=== PATIENT | male | born 1980 | race Caucasian/White ===

== ENCOUNTER 2021-02-19 14:14 | Emergency (ER) | payer MEDICARE, MEDICAID ==
[~2021-02-19] VITALS: Ht 188 cm; Wt 56.7 kg
[2021-02-19] MEDS ORDERED: KEPPRA XR500 MG PO (14:21)
[2021-02-19] MEDS ORDERED: NEURONTIN 300M300 M2 PO (14:21)
[2021-02-19] MEDS ORDERED: COLACE100 MG PO (14:21)
[2021-02-19] MEDS ORDERED: [UNRECOGNIZED DRUG - REMARK] (14:21)
[2021-02-19 14:35] LABS: ABSOLUTE BASOPHILS 0.1 thou/uL (0.0-0.2); ABSOLUTE EOSINOPHILS 0.1 thou/uL (0.0-0.7); ABSOLUTE LYMPHOCYTES 1.4 thou/uL (0.8-5.3); ABSOLUTE MONOCYTES 0.3 thou/uL (0.0-1.2); ABSOLUTE NEUTROPHILS 4.2 thou/uL (1.6-8.1); EOSINOPHILS 0.8 %; HEMATOCRIT 37.2 % (42.0-52.0); HEMOGLOBIN 13.2 gm/dL (14.0-18.0); LYMPHOCYTES 23.5 %; MCH 36.4 pg (26.0-34.0); MCHC 35.3 g/dL (28.0-37.0); MCV 103.1 fL (80.0-100.0); MONOCYTES 5.2 %; MPV 7.9 fl. (7.2-11.1); NUCLEATED RBCS 0 /100WBC; PLATELET COUNT* 197 thou/uL (150-400); POLYS 69.5 %; RBC 3.61 mil/uL (4.50-6.00); RDW-CV 13.2 % (10.5-14.5); WBC 6.1 thou/uL (4.0-11.0)
[2021-02-19 14:44] LABS: ANION GAP 9 mmol/L (7-16); BUN 38 mg/dL (7-18); CHLORIDE 98 mmol/L (98-107); CO2 30 mmol/L (21-32); CREATININE 4.9 mg/dL (0.6-1.3); GLUCOSE 124 mg/dL (70-99); POTASSIUM 3.8 mmol/L (3.5-5.1); SODIUM 137 mmol/L (136-145)
[2021-02-19 14:49] LABS: ALBUMIN 3.8 g/dL (3.4-5.0); ALKALINE PHOSPHATASE 20 U/L (46-116); SGOT < 5 U/L (15-37); SGPT 16 U/L (30-65); TOTAL BILIRUBIN 0.6 mg/dL (<0.1-1.0); TOTAL PROTEIN 7.4 g/dL (6.4-8.2)
[2021-02-19 15:48] VITALS: BP 125/95
--- NOTE | 2021-02-19 16:58 | EKG ---
[place] [address] ELECTROCARDIOGRAM REPORT Name: ABDIEL HERNANDEZ Room: [facility]#: [id number] Admission: 02/19/21 Attend Phys: Discharge: 02/19/21 Date of : 80 Date of Service: 02/19/21 1451 Report #: [id number] THIS REPORT FOR: //name// 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
== END 2021-02-19 15:48 | disposition home or self-care (01) ==
LOC: M.ERS 14:14
PROVIDERS: Emergency Medicine
DX: R06.02 Shortness of breath (principal); N18.6 End stage renal disease; Z99.2 Dependence on renal dialysis; Z79.899 Other long term (current) drug therapy; Z86.73 Personal history of transient ischemic attack (TIA), and cerebral infarction without residual deficits

== ENCOUNTER 2021-03-06 15:25 | Observation (INO) | payer MEDICARE, MEDICAID ==
[~2021-03-06] VITALS: Ht 188 cm; Wt 59.0 kg
[~2021-03-06 15:25] MED LIST: COLACE100 MG PO; KEPPRA XR500 MG PO; NEURONTIN 300M300 M2 PO; [UNRECOGNIZED DRUG - REMARK]
[2021-03-06 15:32] VITALS: BP 136/90
[2021-03-06 15:53] LABS: ABSOLUTE BASOPHILS 0.1 thou/uL (0.0-0.2); ABSOLUTE LYMPHOCYTES 1.1 thou/uL (0.8-5.3); ABSOLUTE MONOCYTES 0.3 thou/uL (0.0-1.2); ABSOLUTE NEUTROPHILS 7.3 thou/uL (1.6-8.1); BASOPHILS 0.6 %; EOSINOPHILS 0.2 %; HEMATOCRIT 38.2 % (42.0-52.0); HEMOGLOBIN 13.5 gm/dL (14.0-18.0); LYMPHOCYTES 12.6 %; MCH 35.6 pg (26.0-34.0); MCHC 35.3 g/dL (28.0-37.0); MCV 100.9 fL (80.0-100.0); MONOCYTES 3.3 %; MPV 7.7 fl. (7.2-11.1); NUCLEATED RBCS 0 /100WBC; PLATELET COUNT* 190 thou/uL (150-400); POLYS 83.3 %; RBC 3.78 mil/uL (4.50-6.00); WBC 8.8 thou/uL (4.0-11.0)
[2021-03-06 16:00] LABS: ANION GAP 8 mmol/L (7-16); BUN 41 mg/dL (7-18); CALCIUM 9.1 mg/dL (8.5-10.1); CHLORIDE 100 mmol/L (98-107); CO2 31 mmol/L (21-32); CREATININE 6.2 mg/dL (0.6-1.3); GLUCOSE 90 mg/dL (70-99); POTASSIUM 3.9 mmol/L (3.5-5.1); SODIUM 139 mmol/L (136-145)
[2021-03-06 16:05] LABS: ALKALINE PHOSPHATASE 21 U/L (46-116); SGOT < 5 U/L (15-37); SGPT 7 U/L (30-65); TOTAL BILIRUBIN 0.7 mg/dL (<0.1-1.0); TOTAL PROTEIN 7.4 g/dL (6.4-8.2)
--- NOTE | 2021-03-06 21:00 | NUR ---
PT HAD MODERATE SIZE STOOL , SOFT, BROWN AND UNFORMED AFTER THE FLEETS ENEMA.
[2021-03-06 21:40] VITALS: BP 137/100
[2021-03-06 22:15] VITALS: BP 154/107
--- NOTE | 2021-03-07 05:16 | NUR ---
PT COMPLETELY FLACCID ON LEFT SIDE, BOTH EXTREMETIES. HE HAD A LARGE BM THIS MORNING AROUND 5 AM. HE IS ALERT AND ORIENTED, ROOM AIR. HE CAN GET UP AND WALK SOME WITH ASSISTANCE. HE REPORTS SOME ABDOMINAL SPASMS. HE WAS ABLE TO SLEEP WELL THIS SHIFT. HE REPORTS HE IS FEELING MUCH BETTER, AND HAD A SUBSTANTIAL BOWEL MOVEMENT. HE RECEIVED FLUIDS ALL EVENING AND CLEAR LIQUIDS.
[2021-03-07 08:21] VITALS: BP 142/95
--- NOTE | 2021-03-07 08:45 | NUR ---
PATIENT WITH 3 STOOLS THIS A.M. ONE SOFT/LIQUID, TWO LARGE AND FORMED, BROWN IN COLOR.
[2021-03-07 10:54] LABS: CALCIUM 8.8 mg/dL (8.5-10.1); CREATININE 6.9 mg/dL (0.6-1.3); POTASSIUM 3.6 mmol/L (3.5-5.1)
[2021-03-07 12:30] VITALS: BP 120/82
[2021-03-07 15:40] VITALS: BP 113/80
--- NOTE | 2021-03-07 18:37 | NUR ---
PATIENT RESTING IN BED. PATIENT WITH TWO BOWEL MOVEMENTS TODAY. REFUSED SUPPOSITORY, MIRALAX AND LACTULOSE. IV TO RIGHT WRIST, NORMAL SALINE INFUSING AT 100, DRESSING C/D/I. PATIENT CURRENTLY DOING DIALYSIS THREE DAYS A WEEK, M/W/ WITH A LEFT UPPER ARM FISTULA. PATIENT WITH POSSIBLE DIAGNOSIS OF ILEUS. C/O STOMACH DISCOMFORT AND HEADACHE, TYLENOL GIVEN X1. ALL QUESTIONS AND CONCERNS ADDRESSED.
[2021-03-07 21:00] VITALS: BP 119/82
[2021-03-08 04:42] LABS: HEMATOCRIT 31.4 % (42.0-52.0); MCH 35.9 pg (26.0-34.0); MCHC 34.9 g/dL (28.0-37.0); MCV 102.9 fL (80.0-100.0); MPV 8.4 fl. (7.2-11.1); RBC 3.05 mil/uL (4.50-6.00); WBC 4.3 thou/uL (4.0-11.0)
[2021-03-08 04:52] LABS: HEMOGLOBIN 10.9 gm/dL (14.0-18.0)
[2021-03-08 04:53] LABS: CALCIUM 7.7 mg/dL (8.5-10.1); CREATININE 7.2 mg/dL (0.6-1.3)
[2021-03-08 05:01] LABS: POTASSIUM 4.8 mmol/L (3.5-5.1)
--- NOTE | 2021-03-08 06:58 | NUR ---
PATIENT HAS SLEPT WELL THROUGHOUT THE NIGHT. VSS ON RA. MEDICATIONS GIVEN ORDERED AND CHARTED. LEFT UPPER ARM FISTULA WITH GOOD THRILL AND BRUIT NOTED. IV IN RIGHT WRIST-NS @ 100ML/HR. PATIENT INSTRUCTED TO USE CALL LIGHT WHEN NEEDING ASSISTANCE. HOURLY ROUNDS MADE. WILL CONTINUE WITH PLAN OF CARE AND NURSING TO MONITOR.
[2021-03-08 08:45] VITALS: BP 121/83
[2021-03-08] MEDS ORDERED: DULCOLAX10 MG RECTAL (09:00)
[2021-03-08] MEDS ORDERED: MIRALAX17 GM PO (09:00)
[2021-03-08 10:17] VITALS: BP 119/82
--- NOTE | 2021-03-08 10:55 | NUR ---
PATIENT DISCHARGED TO HOME. DISCHARGE PAPERS REVIEWED AND SIGNED. PRESCRIPTIONS TRANSMITTED TO PHARMACY. IV REMOVED. PATIENT ASSISTED WITH GETTING DRESSED AND TO WHEELCHIAR. PATIENT DENIES ANY FURTHER NEEDS. PATIENT TAKEN BY WHEELCHAIR TO EXIT. LEFT WITH DAD.
[2021-03-08 11:15] VITALS: BP 119/82
== END 2021-03-08 10:55 | disposition home or self-care (01) ==
LOC: M.ERS 15:25 → M.TBA-ER 20:16 → M.ORTHSURG 22:11
PROVIDERS: Family Medicine; Physician Assistant; ADMIT Internal Medicine; ATTEND Internal Medicine
DX: K59.00 Constipation, unspecified (principal); R53.1 Weakness; Z20.822 Contact with and (suspected) exposure to COVID-19; F17.200 Nicotine dependence, unspecified, uncomplicated; N18.6 End stage renal disease; Z86.73 Personal history of transient ischemic attack (TIA), and cerebral infarction without residual deficits; Z99.2 Dependence on renal dialysis

== ENCOUNTER 2021-03-12 13:22 | Emergency (ER) | payer MEDICARE, MEDICAID ==
[~2021-03-12] VITALS: Ht 188 cm; Wt 59.0 kg
[~2021-03-12 13:22] MED LIST changes: +DULCOLAX10 MG RECTAL; +MIRALAX17 GM PO
[2021-03-12 13:55] LABS: ABSOLUTE EOSINOPHILS 0.1 thou/uL (0.0-0.7); ABSOLUTE LYMPHOCYTES 1.3 thou/uL (0.8-5.3); ABSOLUTE MONOCYTES 0.3 thou/uL (0.0-1.2); ABSOLUTE NEUTROPHILS 5.2 thou/uL (1.6-8.1); BASOPHILS 0.7 %; EOSINOPHILS 0.9 %; HEMATOCRIT 37.6 % (42.0-52.0); LYMPHOCYTES 18.7 %; MCH 35.1 pg (26.0-34.0); MCHC 34.6 g/dL (28.0-37.0); MCV 101.4 fL (80.0-100.0); MPV 7.9 fl. (7.2-11.1); NUCLEATED RBCS 0 /100WBC; PLATELET COUNT* 184 thou/uL (150-400); POLYS 74.7 %; RBC 3.71 mil/uL (4.50-6.00); RDW-CV 12.6 % (10.5-14.5); WBC 6.9 thou/uL (4.0-11.0)
[2021-03-12 14:04] LABS: ANION GAP 3 mmol/L (7-16); BUN 31 mg/dL (7-18); CALCIUM 8.5 mg/dL (8.5-10.1); CHLORIDE 102 mmol/L (98-107); CO2 34 mmol/L (21-32); CREATININE 5.5 mg/dL (0.6-1.3); GLUCOSE 84 mg/dL (70-99); POTASSIUM 4.4 mmol/L (3.5-5.1); SODIUM 139 mmol/L (136-145)
[2021-03-12 14:08] LABS: ALBUMIN 3.8 g/dL (3.4-5.0); ALKALINE PHOSPHATASE 19 U/L (46-116); LIPASE 125 U/L (73-393); SGOT < 5 U/L (15-37); SGPT 16 U/L (30-65); TOTAL BILIRUBIN 0.4 mg/dL (<0.1-1.0); TOTAL PROTEIN 7.3 g/dL (6.4-8.2)
[2021-03-12] MEDS ORDERED: BENTYL 10 MG CA10 M1 PO (15:22)
[2021-03-12 15:41] VITALS: BP 129/83
--- NOTE | 2021-03-12 15:56 | EKG ---
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1980 Requested By: Esvin Saavedra Order Number: [id number] MD: Cj Lake Measurements Intervals [place] Rate: 84 P: [place]: QRS: 62 QRSD: 95 T: 94 QT: 378 QTc: 447 Interpretive Statements sinus rhythm Nonspecific T abnormalities, lateral leads ST elev, probable normal early repol pattern Compared to ECG 02/19/2021 14:51:42 T-wave abnormality still present Electronically Signed On 03-12-2021 15:56:42 CDT by Cj Lake [email or web address] <ELECTRONICALLY SIGNED> By: Cj Lake MD, [facility] 03/12/21 1556 1340 1340 Cj Lake MD, [facility] /EPI
== END 2021-03-12 15:41 | disposition home or self-care (01) ==
LOC: M.ERS 13:22
PROVIDERS: Emergency Medicine Emergency Medical Services
DX: R10.33 Periumbilical pain (principal); Z91.041 Radiographic dye allergy status; Z86.73 Personal history of transient ischemic attack (TIA), and cerebral infarction without residual deficits

== ENCOUNTER 2021-03-20 15:00 | Emergency (ER) | payer MEDICARE, MEDICAID ==
[~2021-03-20] VITALS: Ht 188 cm; Wt 58.5 kg
[~2021-03-20 15:00] MED LIST changes: +BENTYL 10 MG CA10 M1 PO
[2021-03-20 15:32] LABS: ABSOLUTE BASOPHILS 0.1 thou/uL (0.0-0.2); ABSOLUTE LYMPHOCYTES 1.6 thou/uL (0.8-5.3); ABSOLUTE MONOCYTES 0.4 thou/uL (0.0-1.2); ABSOLUTE NEUTROPHILS 4.6 thou/uL (1.6-8.1); BASOPHILS 0.8 %; EOSINOPHILS 0.6 %; HEMATOCRIT 42.1 % (42.0-52.0); HEMOGLOBIN 14.8 gm/dL (14.0-18.0); MCH 35.2 pg (26.0-34.0); MCHC 35.3 g/dL (28.0-37.0); MCV 99.8 fL (80.0-100.0); MONOCYTES 6.6 %; NUCLEATED RBCS 0 /100WBC; PLATELET COUNT* 222 thou/uL (150-400); RBC 4.21 mil/uL (4.50-6.00); RDW-CV 12.7 % (10.5-14.5); WBC 6.7 thou/uL (4.0-11.0)
[2021-03-20 15:41] LABS: ANION GAP 5 mmol/L (7-16); BUN 19 mg/dL (7-18); CALCIUM 9.7 mg/dL (8.5-10.1); CHLORIDE 96 mmol/L (98-107); CO2 35 mmol/L (21-32); CREATININE 5.3 mg/dL (0.6-1.3); GLUCOSE 76 mg/dL (70-99); SODIUM 136 mmol/L (136-145)
[2021-03-20 15:45] LABS: ALBUMIN 4.3 g/dL (3.4-5.0); ALKALINE PHOSPHATASE 24 U/L (46-116); LIPASE 149 U/L (73-393); MAGNESIUM 2.5 mg/dL (1.8-2.4); SGOT < 5 U/L (15-37); SGPT 6 U/L (30-65); TOTAL BILIRUBIN 0.3 mg/dL (<0.1-1.0); TOTAL PROTEIN 8.3 g/dL (6.4-8.2)
[2021-03-20 16:53] VITALS: BP 115/80
--- NOTE | 2021-03-21 14:15 | EKG ---
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 : 1980 Requested By: Esvin Saavedra Order Number: [id number] MD: Nikunj Yen Measurements Intervals [place] Rate: 90 P: 80 CO: 181 QRS: 72 QRSD: 89 T: 101 QT: 362 QTc: 443 Interpretive Statements Sinus rhythm Consider left ventricular hypertrophy Nonspecific T abnormalities, lateral leads Compared to ECG 03/12/2021 13:40:49 ST (T wave) deviation no longer present T-wave abnormality still present Electronically Signed On 03-21-2021 14:15:50 CDT by Nikunj Yen [email or web address] <ELECTRONICALLY SIGNED> By: Nikunj Yen MD, FAC 03/21/21 1415 1508 1508 Nikunj Yen MD, [facility] /EPI
== END 2021-03-20 17:00 | disposition home or self-care (01) ==
LOC: M.ERS 15:00
PROVIDERS: Emergency Medicine Emergency Medical Services
DX: R00.2 Palpitations (principal); Z91.041 Radiographic dye allergy status; Z86.73 Personal history of transient ischemic attack (TIA), and cerebral infarction without residual deficits; Z99.2 Dependence on renal dialysis

== ENCOUNTER 2021-03-24 18:47 | Emergency (ER) | payer MEDICARE, MEDICAID ==
[~2021-03-24] VITALS: Ht 188 cm; Wt 59.0 kg
[2021-03-24] MEDS ORDERED: DEPAKOTE 250MG250 MG PO (18:53)
[2021-03-24] MEDS ORDERED: CARVEDILOL25 MG PO (18:53)
[2021-03-24] MEDS ORDERED: KRISTALOSE20 GM PO (18:54)
[2021-03-24] MEDS ORDERED: FLAGYL500 M1 PO (18:54)
[2021-03-24] MEDS ORDERED: LEVOFLOXACIN250 MG PO (18:54)
[2021-03-24] MEDS ORDERED: NORCO5 PO (18:54)
[2021-03-24] MEDS ORDERED: ONDANSETRON ODT4 MG PO (18:55)
[2021-03-24] MEDS ORDERED: NICODERM CQ1 EAC1 TOP (18:55)
[2021-03-24] MEDS ORDERED: RENVELA0.8 GM PO (18:55)
[2021-03-24 19:07] LABS: ABSOLUTE BASOPHILS 0.1 thou/uL (0.0-0.2); ABSOLUTE EOSINOPHILS 0.1 thou/uL (0.0-0.7); ABSOLUTE LYMPHOCYTES 1.7 thou/uL (0.8-5.3); ABSOLUTE MONOCYTES 0.2 thou/uL (0.0-1.2); ABSOLUTE NEUTROPHILS 3.1 thou/uL (1.6-8.1); BASOPHILS 1.1 %; EOSINOPHILS 1.4 %; HEMATOCRIT 38.5 % (42.0-52.0); HEMOGLOBIN 13.4 gm/dL (14.0-18.0); LYMPHOCYTES 32.8 %; MCH 34.9 pg (26.0-34.0); MCHC 34.7 g/dL (28.0-37.0); MCV 100.5 fL (80.0-100.0); MONOCYTES 4.2 %; MPV 7.9 fl. (7.2-11.1); NUCLEATED RBCS 0 /100WBC; PLATELET COUNT* 185 thou/uL (150-400); POLYS 60.5 %; RBC 3.83 mil/uL (4.50-6.00); RDW-CV 12.8 % (10.5-14.5); WBC 5.2 thou/uL (4.0-11.0)
[2021-03-24 19:17] LABS: ANION GAP 4 mmol/L (7-16); BUN 15 mg/dL (7-18); CALCIUM 8.8 mg/dL (8.5-10.1); CHLORIDE 99 mmol/L (98-107); CO2 36 mmol/L (21-32); CREATININE 3.4 mg/dL (0.6-1.3); GLUCOSE 86 mg/dL (70-99); POTASSIUM 3.5 mmol/L (3.5-5.1); SODIUM 139 mmol/L (136-145)
[2021-03-24 19:29] LABS: ALKALINE PHOSPHATASE 22 U/L (46-116); CK-MB MASS < 0.5 ng/mL (<0.5-3.6); LIPASE 200 U/L (73-393); NT-PRO BRAIN NAT PEPTIDE 507 pg/mL (<300); TOTAL BILIRUBIN 0.5 mg/dL (<0.1-1.0); TOTAL PROTEIN 7.5 g/dL (6.4-8.2)
[2021-03-24 19:42] LABS: SGOT < 5 U/L (15-37); SGPT 7 U/L (30-65)
[2021-03-24 21:20] VITALS: BP 116/80
--- NOTE | 2021-03-25 11:51 | EKG ---
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[facility] : 1980 Requested By: Tom Herndon Order Number: [id number] MD: Nikunj Yen Measurements Intervals [employer] Rate: 73 P: 66 SD: 190 QRS: 45 QRSD: 97 T: 115 QT: 400 QTc: 441 Interpretive Statements Sinus rhythm Probable LVH with secondary repol abnrm Baseline wander in lead(s) I,II,aVR Compared to ECG 03/20/2021 15:08:51 T-wave abnormality no longer present Electronically Signed On 03-25-2021 11:51:31 CDT by Nikunj Yen [email or web address] <ELECTRONICALLY SIGNED> By: Nikunj Yen MD, FACC 03/25/21 115 50 50 Nikunj Yen MD, FAC /EPI
== END 2021-03-24 21:25 | disposition home or self-care (01) ==
LOC: M.ERS 18:47
PROVIDERS: Family Medicine
DX: R07.89 Other chest pain (principal); Z91.041 Radiographic dye allergy status; Z86.73 Personal history of transient ischemic attack (TIA), and cerebral infarction without residual deficits

== ENCOUNTER → 2021-04-20 | Outpatient (CLI) | payer MEDICARE, MEDICAID ==
[~2021-04-20] MED LIST changes: +CARVEDILOL25 MG PO; +DEPAKOTE 250MG250 MG PO; +FLAGYL500 M1 PO; +KRISTALOSE20 GM PO; +LEVOFLOXACIN250 MG PO; +NICODERM CQ1 EAC1 TOP; +NORCO5 PO; +ONDANSETRON ODT4 MG PO; +RENVELA0.8 GM PO
--- NOTE | 2021-04-20 17:42 | CARDNUC ---
[place] [address] CARDIAC NUCLEAR IMAGING REPORT Name: ABDIEL HERNANDEZ Room: [facility]#: [id number] Admission: 04/20/21 Attend Phys: Isaura Connolly RN Discharge: Date of : 80 Date of Service: 04/20/21 1742 Report #: [id number] THIS REPORT FOR: cc: Louis Eastman,Louis Granger,Nikunj Foote MD [facility] ~ APPROVED REPORT Imaging Protocol: Rest Tc-99m/Stress Tc-99m 1 day Study performed: 04/20/2021 14:32:53 Indication: chest pressure, dyspnea, palpitations, racing heart feeling. Patient Location: Out-Patient Stress Tech: Elva Burroughs Stress Nurse: Shelly Cavazos RN NM Tech:RENETTA Isaac Ht: 6 ft 2 in Wt: 134 lbs BSA: 1.83 m2 BMI: 17.20 Medical History Medical History: chest pain/pressure, dyspnea, palpitations, racing heart feeling, ESRD/dialysis/left upper arm AV fistula/polycystic kidney disease, CVA/brain aneurysm/left sided flaccid paralysis, uses wheelchair, HX craniectomy, HTN, current smoker. Medications: No cardiac medications. Allergies: Poison Myrtle extract. Cardiac Risk Factors: Current Smoker, HTN, SOB, ESRD, palpitations. Previous Cardiac Procedures: None Pretest Chest Pain Characteristics: No chest pain Exercise History: Sedentary Physical Disabilities: Wheelchair, left sided flaccid paralysis s/p brain aneurysm/CVA. Meds Held (24 hrs): None Resting Data Rest SPECT myocardial perfusion imaging was performed in supine position 30 minutes following the intravenous injection of 10.0 mCi of Tc-99m Sestamibi. Time of rest injection: 1315 Date: 04/20/2021 The images were gated to evaluate regional wall motion and calculate [place] [address] CARDIAC NUCLEAR IMAGING REPORT Name: ABDIEL HERNANDEZ Room: [facility]#: [id number] Admission: 04/20/21 Attend Phys: Isaura Connolly RN Discharge: Date of : 80 Date of Service: 04/20/21 1742 Report #: [id number] Administration Route: IV Administration Site: Right AC Pharmacologic Stress Pharmacologic stress test was performed by injecting Regadenoson 0.4 mg IV push over 10-15 seconds immediately followed by the intravenous injection of 31.4 mCi of Tc-99m Sestamibi. Time of stress injection: 1435 Date: 04/20/2021 Administration Route: IV Administration Site: Right AC Gated Stress SPECT was performed 40 minutes after stress injection. The images were gated to evaluate regional wall motion and calculate left ventricular ejection fraction. Stress only was performed in the Supine position. Stress Test Details Stress Test: Pharmacologic stress testing performed using 0.4 mg of regadenoson per 5 mL given IV over 10 seconds. Reason for pharmacologic stress test: Wheelchair, left sided flaccid paralysis s/p brain aneurysm/CVA.. HR Max Heart Rate (APMHR): 180 bpm Resting HR: 90 bpm Target HR (85% APMHR): 153 bpm Max HR Achieved: 133 bpm % of APMHR: 73 Recovery HR: 126 bpm BP Resting BP: 94/69 mmHg Max BP: 117/57 mmHg Recovery BP: 116/62 mmHg ECG Resting ECG: Sinus Rhythm Stress ECG: Sinus Tachycardia ST Change: None Arrhythmia: None Recovery ECG: Sinus Tachycardia Recovery ST Change: None Recovery Arrhythmia: None Clinical Reason for Termination: Completed protocol Stress Symptoms: Chest funny/tingling feeling, lightheaded, dyspnea. Exercise duration: 00 min 00 [place] [address] CARDIAC NUCLEAR IMAGING REPORT Name: ABDIEL HERNANDEZ Room: [facility]#: [id number] Admission: 04/20/21 Attend Phys: Isaura Connolly RN Discharge: Date of : 80 Date of Service: 04/20/21 1742 Report #: [id number] Exercise capacity: 1.00 METs The patient had some atypical symptoms with Lexiscan infusion felt to be due to medication effect. Nurse Comments A 40 year old male wheelchair patient tolerated a sitting Lexiscan Nuclear stress test. Patient was stable and stated he felt good when escorted via wheelchair to Nuclear Medicine for imaging. Stress ECG Conclusion The baseline twelve-lead EKG shows sinus rhythm without significant ST segment abnormality. EKGs obtained during and post Lexiscan infusion show sinus tachycardia with no significant ST segment changes when compared to baseline. There were no stress-induced arrhythmias. Study Quality Study: Fair Artifact: Moderate Diaphragmatic and extracardiac. Study Data At rest, the left ventricular ejection fraction was 81%.. Post stress, the left ventricular ejection was 73%.. TID = 0.98. Perfusion Perfusion images show photopenia involving the inferior and lateral wall that do not appear to be reversible. No reversible defects were identified. Review of the raw data shows diaphragmatic uptake and extracardiac artifact. Wall Motion Review of the raw data shows normal wall motion. Nuclear Conclusion ECG Findings: negative for ischemia Clinical Findings: negative for ischemia Nuclear Findings: negative for ischemia Exercise Capacity: not assessed Left Ventricular Function: normal Risk Study: low Perfusion study showed no reversible defects to suggest ischemia. Global LV systolic function appears to be normal without wall motion abnormality. This is a low risk study. <Conclusion> [place] [address] CARDIAC NUCLEAR IMAGING REPORT Name: ABDIEL HERNANDEZ [id number] Admission: 04/20/21 Attend Phys: Isaura Connolly RN Discharge: Date of : 80 Date of Service: 04/20/21 1742 Report #: [id number] The baseline twelve-lead EKG shows sinus rhythm without significant ST segment abnormality. EKGs obtained during and post Lexiscan infusion show sinus tachycardia with no significant ST segment changes when compared to baseline. There were no stress-induced arrhythmias. <ELECTRONICALLY SIGNED> By: Nikunj Yen MD, FACC 04/20/211741 41 41 Nikunj Yen MD, FACC /INF
== END ==
LOC: M.NUC 12:45
PROVIDERS: ATTEND Registered Nurse
DX: R00.0 Tachycardia, unspecified (principal); R07.9 Chest pain, unspecified; R00.2 Palpitations; I10 Essential (primary) hypertension; F17.200 Nicotine dependence, unspecified, uncomplicated

== ENCOUNTER 2021-05-15 13:51 | Emergency (ER) | payer MEDICARE, MEDICAID ==
[~2021-05-15] VITALS: Ht 188 cm; Wt 61.2 kg
[2021-05-15 14:30] LABS: ABSOLUTE BASOPHILS 0.1 thou/uL (0.0-0.2); ABSOLUTE LYMPHOCYTES 0.9 thou/uL (0.8-5.3); ABSOLUTE MONOCYTES 0.2 thou/uL (0.0-1.2); ABSOLUTE NEUTROPHILS 5.6 thou/uL (1.6-8.1); BASOPHILS 0.8 %; EOSINOPHILS 0.6 %; HEMATOCRIT 42.5 % (42.0-52.0); HEMOGLOBIN 14.4 gm/dL (14.0-18.0); LYMPHOCYTES 13.7 %; MCH 32.6 pg (26.0-34.0); MCHC 33.9 g/dL (28.0-37.0); MCV 96.2 fL (80.0-100.0); MPV 7.8 fl. (7.2-11.1); NUCLEATED RBCS 0 /100WBC; PLATELET COUNT* 172 thou/uL (150-400); POLYS 81.9 %; RBC 4.42 mil/uL (4.50-6.00); RDW-CV 13.1 % (10.5-14.5); WBC 6.8 thou/uL (4.0-11.0)
[2021-05-15 15:14] LABS: CREATININE 5.4 mg/dL (0.6-1.3); POTASSIUM 3.5 mmol/L (3.5-5.1)
[2021-05-15 15:18] LABS: ALBUMIN 3.4 g/dL (3.4-5.0); TOTAL BILIRUBIN 0.5 mg/dL (<0.1-1.0); TOTAL PROTEIN 6.3 g/dL (6.4-8.2)
[2021-05-15 17:53] VITALS: BP 146/95
== END 2021-05-15 17:56 | disposition home or self-care (01) ==
LOC: M.ERS 13:51
PROVIDERS: Family Medicine
DX: K59.00 Constipation, unspecified (principal); N18.6 End stage renal disease; Z99.2 Dependence on renal dialysis; Z86.73 Personal history of transient ischemic attack (TIA), and cerebral infarction without residual deficits; Z79.899 Other long term (current) drug therapy; Z91.048 Other nonmedicinal substance allergy status

== ENCOUNTER → 2021-06-18 | Outpatient (CLI) | payer MEDICARE, MEDICAID ==
[2021-06-18 11:06] LABS: HEMATOCRIT 37.7 % (42.0-52.0); HEMOGLOBIN 12.8 gm/dL (14.0-18.0); MCH 32.4 pg (26.0-34.0); MCHC 33.9 g/dL (28.0-37.0); MCV 95.5 fL (80.0-100.0); MPV 8.2 fl. (7.2-11.1); RBC 3.95 mil/uL (4.50-6.00); RDW-CV 12.8 % (10.5-14.5); WBC 4.2 thou/uL (4.0-11.0)
[2021-06-18 11:09] LABS: ALBUMIN 4.1 g/dL (3.4-5.0); ALKALINE PHOSPHATASE 26 U/L (46-116); ANION GAP 9 mmol/L (7-16); BUN 63 mg/dL (7-18); CALCIUM 8.9 mg/dL (8.5-10.1); CHLORIDE 106 mmol/L (98-107); CO2 28 mmol/L (21-32); CREATININE 8.2 mg/dL (0.6-1.3); GLUCOSE 100 mg/dL (70-99); POTASSIUM 4.6 mmol/L (3.5-5.1); SGOT < 5 U/L (15-37); SGPT 15 U/L (30-65); SODIUM 143 mmol/L (136-145); TOTAL BILIRUBIN 0.5 mg/dL (<0.1-1.0); TOTAL PROTEIN 7.2 g/dL (6.4-8.2)
== END ==
LOC: M.LAB 10:43
PROVIDERS: ATTEND Internal Medicine Nephrology
DX: N18.6 End stage renal disease (principal)

== ENCOUNTER 2021-07-22 22:58 | Emergency (ER) | payer MEDICARE, MEDICAID ==
[~2021-07-22] VITALS: Ht 188 cm; Wt 60.8 kg
[2021-07-22 23:21] LABS: ABSOLUTE EOSINOPHILS 0.1 thou/uL (0.0-0.7); ABSOLUTE LYMPHOCYTES 1.2 thou/uL (0.8-5.3); ABSOLUTE MONOCYTES 0.3 thou/uL (0.0-1.2); ABSOLUTE NEUTROPHILS 5.1 thou/uL (1.6-8.1); BASOPHILS 0.4 %; EOSINOPHILS 0.9 %; HEMATOCRIT 26.3 % (42.0-52.0); HEMOGLOBIN 9.1 gm/dL (14.0-18.0); LYMPHOCYTES 18.2 %; MCHC 34.5 g/dL (28.0-37.0); MCV 95.6 fL (80.0-100.0); MONOCYTES 4.1 %; MPV 7.6 fl. (7.2-11.1); NUCLEATED RBCS 0 /100WBC; PLATELET COUNT* 160 thou/uL (150-400); POLYS 76.4 %; RBC 2.75 mil/uL (4.50-6.00); RDW-CV 13.2 % (10.5-14.5); WBC 6.7 thou/uL (4.0-11.0)
[2021-07-22 23:49] LABS: APTT 22.3 Seconds (25.0-31.3); INR 1.1; PROTIME 11.3 Seconds (9.20-11.50)
[2021-07-22 23:51] LABS: ANION GAP 6 mmol/L (7-16); BUN 27 mg/dL (7-18); CHLORIDE 105 mmol/L (98-107); CO2 32 mmol/L (21-32); CREATININE 5.1 mg/dL (0.6-1.3); GLUCOSE 131 mg/dL (70-99); POTASSIUM 3.7 mmol/L (3.5-5.1); SODIUM 143 mmol/L (136-145)
[2021-07-22 23:55] LABS: ALBUMIN 2.8 g/dL (3.4-5.0); ALKALINE PHOSPHATASE 24 U/L (46-116); SGOT < 5 U/L (15-37); SGPT 10 U/L (30-65); TOTAL BILIRUBIN 0.3 mg/dL (<0.1-1.0); TOTAL PROTEIN 5.2 g/dL (6.4-8.2)
[2021-07-23 02:02] LABS: HEMATOCRIT 26.7 % (42.0-52.0); HEMOGLOBIN 9.3 gm/dL (14.0-18.0); MCH 32.9 pg (26.0-34.0); MCHC 34.8 g/dL (28.0-37.0); MCV 94.6 fL (80.0-100.0); MPV 7.6 fl. (7.2-11.1); RBC 2.82 mil/uL (4.50-6.00); RDW-CV 13.2 % (10.5-14.5); WBC 8.5 thou/uL (4.0-11.0)
[2021-07-23 04:30] VITALS: BP 108/76
--- NOTE | 2021-07-23 09:57 | EKG ---
[place] [address] ELECTROCARDIOGRAM REPORT Name: ABDIEL HERNANDEZ Room: 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: [place] : 1980 Requested By: Aarti Mandujano Order Number: [id number] MD: Cj Lake Measurements Intervals [place] Rate: 77 P: 77 [place]: 188 QRS: 69 QRSD: 105 T: 91 QT: 411 QTc: 466 Interpretive Statements Sinus rhythm Nonspecific T abnormalities, lateral leads ST elev, probable normal early repol pattern Compared to ECG 03/24/2021 18:51:19 no change Electronically Signed On 07-23-2021 9:57:35 CDT by Cj Lake [email or web address] <ELECTRONICALLY SIGNED> By: Cj Lake MD, FACC 07/23/21 0957 2305 Cj Lake MD, [facility] /EPI
== END 2021-07-23 04:30 | disposition home or self-care (01) ==
LOC: M.ERS 22:58
PROVIDERS: Personal Emergency Response Attendant
DX: T82.590A Other mechanical complication of surgically created arteriovenous fistula, initial encounter (principal); I95.9 Hypotension, unspecified; E86.1 Hypovolemia; Y83.8 Other surgical procedures as the cause of abnormal reaction of the patient, or of later complication, without mention of misadventure at the time of the procedure; Z79.899 Other long term (current) drug therapy; Y92.89 Other specified places as the place of occurrence of the external cause

== ENCOUNTER 2021-09-17 17:02 | Emergency (ER) | payer MEDICARE, MEDICAID ==
[~2021-09-17] VITALS: Ht 188 cm; Wt 60.8 kg
[2021-09-17 18:23] VITALS: BP 122/76
== END 2021-09-17 18:24 | disposition left against medical advice (07) ==
LOC: M.ERS 17:02
DX: R10.9 Unspecified abdominal pain (principal); Z53.21 Procedure and treatment not carried out due to patient leaving prior to being seen by health care provider

== ENCOUNTER 2021-09-19 15:02 | Emergency (ER) | payer MEDICARE, MEDICAID ==
[~2021-09-19] VITALS: Ht 182.9 cm; Wt 61.2 kg
[2021-09-19 16:07] LABS: ABSOLUTE EOSINOPHILS 0.1 thou/uL (0.0-0.7); ABSOLUTE LYMPHOCYTES 1.1 thou/uL (0.8-5.3); ABSOLUTE MONOCYTES 0.2 thou/uL (0.0-1.2); ABSOLUTE NEUTROPHILS 2.7 thou/uL (1.6-8.1); BASOPHILS 0.6 %; EOSINOPHILS 1.4 %; HEMATOCRIT 37.3 % (42.0-52.0); HEMOGLOBIN 12.6 gm/dL (14.0-18.0); LYMPHOCYTES 26.4 %; MCH 32.6 pg (26.0-34.0); MCHC 33.7 g/dL (28.0-37.0); MCV 96.6 fL (80.0-100.0); MONOCYTES 5.4 %; MPV 7.5 fl. (7.2-11.1); NUCLEATED RBCS 0 /100WBC; PLATELET COUNT* 176 thou/uL (150-400); POLYS 66.2 %; RBC 3.86 mil/uL (4.50-6.00); RDW-CV 13.1 % (10.5-14.5); WBC 4.1 thou/uL (4.0-11.0)
[2021-09-19 16:15] LABS: ANION GAP 11 mmol/L (7-16); BUN 58 mg/dL (7-18); CALCIUM 8.6 mg/dL (8.5-10.1); CHLORIDE 101 mmol/L (98-107); CO2 30 mmol/L (21-32); CREATININE 9.5 mg/dL (0.6-1.3); GLUCOSE 91 mg/dL (70-99); SODIUM 142 mmol/L (136-145)
[2021-09-19 16:19] LABS: ALBUMIN 3.7 g/dL (3.4-5.0); ALKALINE PHOSPHATASE 22 U/L (46-116); LIPASE 137 U/L (73-393); SGOT < 5 U/L (15-37); SGPT 8 U/L (30-65); TOTAL BILIRUBIN 0.3 mg/dL (<0.1-1.0); TOTAL PROTEIN 6.9 g/dL (6.4-8.2)
[2021-09-19] MEDS ORDERED: AUGMENTIN 875-1 EACH PO (17:40)
[2021-09-19 17:58] VITALS: BP 130/83
--- NOTE | 2021-09-20 15:29 | EKG ---
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1980 Requested By: Esvin Saavedra Order Number: [id number] MD: Red Garcia Measurements Intervals [place] Rate: 70 P: 73 [place]: 201 QRS: 71 QRSD: 89 T: 89 QT: 392 QTc: 423 Interpretive Statements Sinus rhythm Anteroseptal infarct, age indeterminate Minimal ST elevation, inferior leads Compared to ECG 07/22/2021 23:05:58 Myocardial infarct finding now suggested ST (T wave) deviation still present Electronically Signed On 09-20-2021 15:29:08 STUDIO POTTER by Red Garcia [email or web address] <ELECTRONICALLY SIGNED> By: Red Garcia MD, [facility] 09/20/21 1529 1605 1605 Red Garcia MD, [facility] /EPI
== END 2021-09-19 17:59 | disposition home or self-care (01) ==
LOC: M.ERS 15:02
PROVIDERS: Emergency Medicine Emergency Medical Services
DX: R10.31 Right lower quadrant pain (principal); Z79.899 Other long term (current) drug therapy; Z88.8 Allergy status to other drugs, medicaments and biological substances

== ENCOUNTER → 2021-09-20 | Outpatient (CLI) | payer MEDICARE, MEDICAID ==
[~2021-09-20] MED LIST changes: +AUGMENTIN 875-1 EACH PO
[2021-09-20 10:32] LABS: CALCIUM 8.9 mg/dL (8.5-10.1); CREATININE 9.1 mg/dL (0.6-1.3); POTASSIUM 4.2 mmol/L (3.5-5.1)
== END ==
LOC: M.LAB 09:48
PROVIDERS: ATTEND Nurse Practitioner Family
DX: N18.6 End stage renal disease (principal)

== ENCOUNTER → 2021-09-27 | Outpatient (CLI) | payer MEDICARE, MEDICAID ==
[2021-09-27 10:58] LABS: CALCIUM 8.8 mg/dL (8.5-10.1); CREATININE 9.5 mg/dL (0.6-1.3)
== END ==
LOC: M.LAB 10:32
PROVIDERS: ATTEND Internal Medicine Nephrology
DX: N18.6 End stage renal disease (principal)

== ENCOUNTER → 2021-11-05 | Outpatient (CLI) | payer MEDICARE, MEDICAID ==
[2021-11-05 10:01] LABS: CALCIUM 8.7 mg/dL (8.5-10.1); CREATININE 7.4 mg/dL (0.6-1.3); POTASSIUM 4.3 mmol/L (3.5-5.1)
== END ==
LOC: M.LAB 09:12
PROVIDERS: ATTEND Internal Medicine Nephrology
DX: N18.6 End stage renal disease (principal)

== ENCOUNTER → 2021-11-15 | Outpatient (CLI) | payer MEDICARE, MEDICAID ==
[2021-11-15 10:10] LABS: CALCIUM 8.9 mg/dL (8.5-10.1); CREATININE 7.5 mg/dL (0.6-1.3); POTASSIUM 4.9 mmol/L (3.5-5.1)
== END ==
LOC: M.LAB 09:39
PROVIDERS: ATTEND Nurse Practitioner Family
DX: N18.6 End stage renal disease (principal)